=== PATIENT | male | born 1955 | race Caucasian/White ===

== ENCOUNTER 2020-05-31 09:31 | Emergency (ER) | payer MEDICAID, OTHER ==
[~2020-05-31] VITALS: Ht 165.1 cm; Wt 56.3 kg
[~2020-05-31 09:31] MED LIST: LORA-445 PO; MULT1TAB76 PO; NICO-485 TD; OXYC5TAB3 PO; QUET25TA5 PO; TEMA15CA6 PO; THIA50TA4 PO
[2020-05-31 09:34] VITALS: BP 163/88
[2020-05-31] MEDS ORDERED: HYDROcodone/APAP 5/325 TABLET ONE (09:57)
[2020-05-31] MEDS ORDERED: METHOCARBAMOL 750 MG TABLET ONE (09:57)
[2020-05-31] MEDS ORDERED: METHOCARBAMOL 750 MG TABLET PO ONE (10:00)
[2020-05-31] MEDS ORDERED: HYDROcodone/APAP 5/325 TABLET PO ONE (10:00)
== END 2020-05-31 10:28 | disposition home or self-care (01) ==
LOC: ED 10:00
DX: G89.29 Other chronic pain (principal); M54.6 Pain in thoracic spine; F17.290 Nicotine dependence, other tobacco product, uncomplicated
CPT/HCPCS: 72072; 99283